=== PATIENT | female | born 1985 | race Hispanic/Latino ===

== ENCOUNTER 2025-01-06 15:35 | Emergency (ER) | payer BC ==
[~2025-01-06] VITALS: Ht 160 cm; Wt 63.5 kg
[2025-01-06 16:38] VITALS: PULSE 99; RESP 18; TEMP 98.8
[2025-01-06] MEDS: DIPHENHYDRAMINE HCL INJ 50 MG/ML VIAL IV STA (18:27)
[2025-01-06] MEDS: KETOROLAC TROMETHAMINE 30 MG/ML VIAL IV STA (18:28)
[2025-01-06] MEDS: METOCLOPRAMIDE HCL 10 MG/2ML VIAL IV STA (18:28)
[2025-01-06] MEDS: SODIUM CHLORIDE 0.9% 1000ML 1,000 ML IV STA (18:29)
[2025-01-06 18:56] LABS: BASOPHILS % 0.4 % (0.0-1.0); EOSINOPHILS % 1.5 % (0.0-6.0); LYMPHOCYTES % 12.9 % (18.0-39.1); MONOCYTES % 5.5 % (4.4-11.3); NEUTROPHILS % 79.3 % (38.7-80.0); RED CELL DISTRIBUTION WIDTH 13.8 % (11.7-14.4)
[2025-01-06 18:58] LABS: AMPHETAMINES SCREEN,URINE NEGATIVE (NEGATIVE); OPIATES SCREEN,URINE NEGATIVE (NEGATIVE)
[2025-01-06 18:59] LABS: CANNABINOIDS SCREEN,URINE NEGATIVE (NEGATIVE); COCAINE SCREEN,URINE NEGATIVE (NEGATIVE); METHADONE SCREEN, URINE NEGATIVE (NEGATIVE)
[2025-01-06 19:19] LABS: EST GLOMERULAR FILTRATION RATE 87.0 ML/MIN (>=60)
[2025-01-06] MEDS: METHYLPREDNISOLONE SOD SUCC 125 MG/2ML VIAL IV STA (19:24)
[2025-01-06] MEDS ORDERED: PREDNISONE20 MG PO (19:35)
[2025-01-06] MEDS ORDERED: AZITHROMYCIN250 MG PO (19:35)
[2025-01-06 20:04] VITALS: BP 126/82; PULSE 87; RESP 18; O2SAT 100
== END 2025-01-06 20:07 | disposition home or self-care (01) ==
LOC: ER 16:31
DX: R51.9 Headache, unspecified (principal); J01.90 Acute sinusitis, unspecified; R05.9 Cough, unspecified; R53.81 Other malaise
CPT/HCPCS: 36415; 70450; 80053; 80307; 81025; 85025; 99284; J1200; J1885; J2765; J2919; J7030